=== PATIENT | male | born 1990 | race Two or more races ===

== ENCOUNTER 2021-04-23 15:29 | Emergency (ER) | payer OTHER ==
[~2021-04-23] VITALS: Ht 172.7 cm; Wt 95.3 kg
[2021-04-23 16:50] VITALS: BP 131/96
[2021-04-23] MEDS ORDERED: TETANUS-DIPTH-ACEL PERTUSSIS 0.5ML SYR Tdap IM ONE (17:15)
[2021-04-23] MEDS ORDERED: LIDOCAINE 1% HCL (LOCAL ANESTH.) INJ 20ML MDV IJ ONE (17:15)
[2021-04-23] MEDS ORDERED: HYDROcodone-ACET 5/325MG TAB PO ONE (17:15)
[2021-04-23] MEDS ORDERED: cefTRIAXone SOD 1,000 MG VL ONE (17:24)
[2021-04-23] MEDS ORDERED: cefTRIAXone W LIDOCAINE 1 GM IM IM ONE (17:30)
== END 2021-04-23 17:38 | disposition home or self-care (01) ==
LOC: EDBD 15:30 → ER 15:30
DX: S62.633B Displaced fracture of distal phalanx of left middle finger, initial encounter for open fracture (principal); V87.8XXA Person injured in other specified noncollision transport accidents involving motor vehicle (traffic), initial encounter; Y93.89 Activity, other specified; Y92.89 Other specified places as the place of occurrence of the external cause; Y99.8 Other external cause status
CPT/HCPCS: 12001; 73130; 90471; 90715; 96372; 99284; J0696; J2001

== ENCOUNTER → 2021-04-23 | Emergency (ER) | payer OTHER | END | disposition left against medical advice (07) | LOC: EDBD → ER 15:22 → EDBD 15:22 | DX: Z04.1 Encounter for examination and observation following transport accident (principal); Z53.21 Procedure and treatment not carried out due to patient leaving prior to being seen by health care provider ==